=== PATIENT | female | born 1980 | race Caucasian/White ===

== ENCOUNTER 2022-03-08 21:25 | Observation (INO) | payer OTHER ==
[2022-03-08 22:17] VITALS: BMI 41.2
[2022-03-08] MEDS ORDERED: Zolpidem Tartrate 5 MG TAB PO PRN (22:19)
[2022-03-08] MEDS ORDERED: Nicotine 14 MG PATCH TD SCH (22:45)
[2022-03-09] MEDS ORDERED: Ibuprofen 800 MG TAB PO PRN (02:35)
[2022-03-09] MEDS ORDERED: Acetaminophen 500 MG TAB PO PRN (02:36)
[2022-03-09 05:19] LABS: #Basophils 0.1 10x3/uL (0.0-0.2); #Eosinphils 1.2 10x3/uL (0.0-0.5); #Monocytes 0.6 10x3/uL (0.0-1.1); #Neutrophils 5.6 10x3/uL (1.5-8.4); %Basophils 0.6 % (0.0-2.0); %Eosinophils 10.7 % (0.0-6.0); %Lymphocytes 30.8 % (18.0-47.0); %Monocytes 5.3 % (0.0-10.0); %Neutrophils 52.2 % (40.0-75.0); Hemoglobin 8.6 g/dL (12.0-15.5); Mean Corpuscular HGB CONC 30.2 g/dL (32.0-36.0); Mean Corpuscular Hemoglobin 23.8 pg (27.0-33.0); Mean Corpuscular Volume 78.9 fl (81.6-98.3); Mean Platelet Volume 10.3 fl (7.4-10.4); Platelet Count 232 10x3/uL (150-450); RBC Distribution Width 25.1 % (11.5-14.5); Red Blood Cell (RBC) Count 3.61 10x6/uL (3.90-5.03); White Blood Cell (WBC) Count 10.7 10x3/uL (3.5-10.5)
[2022-03-09 07:23] LABS: Anisocytosis SLIGHT = 6-15 cells (100X) (0-5/hpf); Hypochromia SLIGHT = 6-15 cells (100X) (0-5/hpf); Microcytosis SLIGHT = 6-15 cells (100X) (0-5/hpf); Platelet Morphology Comment Appears Adequate
[2022-03-09] MEDS ORDERED: Famotidine 20 MG TAB PO SCH (09:00)
[2022-03-09 11:32] VITALS: BP 104/64; TEMP 98.3
[2022-03-09] MEDS ORDERED: Nicotine 14 MG PATCH TD SCH (21:00)
== END 2022-03-09 15:30 | disposition home or self-care (01) ==
LOC: CSHANTE 21:25
PROVIDERS: ADMIT Obstetrics & Gynecology; ATTEND Obstetrics & Gynecology
DX: N93.9 Abnormal uterine and vaginal bleeding, unspecified (principal); D64.9 Anemia, unspecified; J44.9 Chronic obstructive pulmonary disease, unspecified; F31.9 Bipolar disorder, unspecified; F20.9 Schizophrenia, unspecified; F17.200 Nicotine dependence, unspecified, uncomplicated; Z98.890 Other specified postprocedural states
CPT/HCPCS: 36415; 36430; 85025; 86850; 86900; 86901; G0378; P9016